=== PATIENT | male | born 2000 | race Hispanic/Latino ===

== ENCOUNTER 2025-06-22 06:02 | Emergency (ER) | payer OTHER ==
[~2025-06-22] VITALS: Ht 188 cm; Wt 81.6 kg
--- NOTE | 2025-06-22 06:07 | NUR ---
REPORT TO RAMILA BURT
[2025-06-22 06:22] LABS: IMMATURE GRANULOCYTE ABSOLUTE 0.03 K/uL (0-1); NUCLEATED RED BLOOD CELLS 0.0 % (0.0-0.19); PLATELET COUNT (AUTO) 325 K/uL (130-400); RED BLOOD CELL COUNT(AUTO) 5.83 MIL/uL (4.50-6.20); RED CELL DISTRIBUTION WIDTH 12.8 % (11.0-15.5); WHITE BLOOD COUNT (AUTO) 10.4 K/uL (4.8-10.8)
[2025-06-22 06:36] LABS: ASPARTATE AMINOTRANSFERASE 20.0 U/L (10-37); CREATININE 1.1 mg/dL (0.5-1.3); GLOMERULAR FILTR. RATE CALC 95.0 mL/min (>90); GLUCOSE,RANDOM 97.0 mg/dL (70-105); SODIUM SERUM 134.0 mmol/L (136-145); TOTAL PROTEIN, SERUM 8.7 g/dL (6.0-8.3); UREA NITROGEN, BLOOD 24.0 mg/dL (7-18)
--- NOTE | 2025-06-22 07:11 | ERN ---
ED Note History of Present Illness Stated Complaint: DIARRHEA Chief Complaint: Diarrhea Time Seen by MD: 06:35 Dictation: This is a 24-year-old male who presented to the emergency room with complaints of diarrhea for 24 hours. He denied any fever chills or rigors. No other family members are sick. Temperature 97.9 pulse 91 respirations 16 blood pressure 134/72 with a pulse oximetry of 97% on room air Allergies: Coded Allergies: No Known Allergies (Unverified Allergy, Unknown, 06/22/25) Past Medical History Past Medical History: No Pertinent History Surgical History: None Family History: Negative RN Note Reviewed/Agreed w/PFSH: Yes Review of System Dictation Constitutional: Negative for fever,chills, and weight loss Eyes: Negative for injury, pain,redness, and discharge ENT: Negative for injury,pain or swelling Cardiovascular: Negative for chest pain, palpitations, and edema Respiratory: Negative for shortness of breath, cough, and wheezing, Abdomen/GI: Negative for abdominal pain, nausea, vomiting,, and constipation positive for diarrhea Back: Negative for injury and pain : Negative for injury, bleeding and discharge MS/Extremity: Negative for injury and deformity Skin: Negative for rash, and discoloration Neuro: Negative for headache, weakness, numbness, tingling, and seizure Psych: Negative for suicide ideation, homicidal ideation, and hallucinations Initial Vital Sign VS Vital Signs Date Time Temp Pulse Resp B/P (MAP) Pulse Ox O2 Delivery O2 Flow Rate FiO2 06/22/25 06:03 97.9 91 16 134/72 97 Room Air Physical Exam Dictation General: awake, alert, NAD Head/Face: Normocephalic, atraumatic Eyes: PERRL, EOMI, vision at baseline ENT: oral cavity clear, TMs clear, no signs of infection Neck: Trachea midline, supple, no nuchal rigidity Cardiovascular: RRR, normal S1/S2, No MRGs, no JVD Respiratory: CTAB, no respiratory distress, No rales or wheezes Abdomen: Soft, non-tender, non-distended, normal bowel sounds, no guarding or rebound. Skin: Warm, dry, normal turgor, no rash MS/Extremity: Pulses equal, no cyanosis, neurovascular intact, FROM Neuro: COAx4, GCS 15, strength 5/5, CN 2-12 intact, normal cerebellar exam, normal gait, Psych: Normal behavior, mood, and affect normal Extremities-trace edema without any palpable cords, Homans sign is negative Results (Laboratory/Radiology) Laboratory/Radiology Laboratory Tests Test 06/22/25 06:16 White Blood Count 10.4 K/uL (4.8-10.8) Red Blood Count 5.83 MIL/uL (4.50-6.20) Hemoglobin 17.4 g/dL (14.0-18.0) Hematocrit 50.3 % (42-54) Mean Corpuscular Volume 86.3 fL (79-99) Mean Corpuscular Hemoglobin 29.8 pg (27.0-33.0) Mean Corpuscular Hemoglobin Concent 34.6 g/dL (32.0-36.0) Red Cell Distribution Width 12.8 % (11.0-15.5) Platelet Count 325 K/uL (130-400) Mean Platelet Volume 9.7 fL (7.5-10.5) Immature Granulocyte % (Auto) 0.3 % (0-1) Neutrophils (%) (Auto) 60.1 % (40.0-77.0) Lymphocytes (%) (Auto) 29.4 % (21.0-51.0) Monocytes (%) (Auto) 7.6 % (3.0-13.0) Eosinophils (%) (Auto) 2.2 % (0.0-8.0) Basophils (%) (Auto) 0.4 % (0.0-5.0) Neutrophils # (Auto) 6.2 K/uL (1.8-7.7) Lymphocytes # (Auto) 3.1 K/uL (1.0-4.8) Monocytes # (Auto) 0.8 K/uL (0.1-1.0) Eosinophils # (Auto) 0.23 K/uL (0.00-0.70) Basophils # (Auto) 0.04 K/uL (0.00-0.20) Absolute Immature Granulocyte (auto 0.03 K/uL (0-1) Nucleated Red Blood Cells 0.0 % (0.0-0.19) Sodium Level 134 mmol/L (136-145) L Potassium Level 3.8 mmol/L (3.5-5.1) Chloride Level 101 mmol/L (101-111) Carbon Dioxide Level 22 mmol/L (21-32) Blood Urea Nitrogen 24 mg/dL (7-18) H Creatinine 1.1 mg/dL (0.5-1.3) Glomerular Filtration Rate Calc 95 mL/min (>90) Random Glucose 97 mg/dL (70-105) Total Calcium 8.8 mg/dL (8.5-10.1) Total Bilirubin 0.9 mg/dL (0.2-1.0) Aspartate Amino Transf (AST/SGOT) 20 U/L (10-37) Alanine Aminotransferase (ALT/SGPT) 39 U/L (12-78) Alkaline Phosphatase 113 U/L (50-136) Total Protein 8.7 g/dL (6.0-8.3) H Albumin 4.6 g/dL (3.5-5.0) Labs Reviewed?: Yes ED Course ED Course Orders Procedure Category Date Status Time Cbc With Differential LAB 06/22/25 Complete 06:07 Comprehensive LAB 06/22/25 Complete Metabolic Panel 06:07 Lactated Ringers PHA 06/22/25 Logged 1000ml (Lactated 07:30 Loperamide Hcl 2 Mg PHA 06/22/25 Verified Cap (Imodium) 07:30 Current Medications Medications (Trade) Dose Ordered Sig/Jeimy Route PRN Reason Start Time Stop Time Status Last Admin Dose Admin Lactated Ringer's 1,000 ml @ 125 mls/hr ONCE ONCE IV 06/22/25 07:30 06/22/25 15:29 UNV Vital Signs Date Time Temp Pulse Resp B/P (MAP) Pulse Ox O2 Delivery O2 Flow Rate FiO2 06/22/25 06:03 97.9 91 16 134/72 97 Room Air We will perform diagnostic labs, and administer medications according to the patient's complaint. Once the results are available, will review and personally interpreted the labs to rule out any acute life-threatening emergency the trach require immediate intervention and treatment. I will then re-evaluate the patient after treatment and diagnostic exams have return to determine whether the patient requires any further testing, can safely be discharged home or need further admission to hospital for additional treatment and evaluation. Medical Decision Making MDM Differential diagnosis: Food poisoning, viral gastroenteritis, lactose intolerance, inflammatory bowel disease, irritable bowel syndrome This is a 24-year-old male who presented to the emergency room with complaints of diarrhea for 24 hours. He denied any fever chills or rigors. No other family members are sick. Temperature 97.9 pulse 91 respirations 16 blood pressure 134/72 with a pulse oximetry of 97% on room air Labs reviewed CBC is with a normal limits BNP 7 shows a sodium of 134 BUN and creatinine of 24 and 1.1 Trial of gentle fluids and symptomatic management. Rationale: Tests considered and ordered secondary to shared decision making include: Labs Previous outside records reviewed: Old ER visits. Risk of complication and/or morbidity or mortality of patient management: None Medications-Per medication reconciliation Need for hospitalization: Patient does not meet criteria for hospitalization. Need for emergency major/minor surgery: No There are no social concerns with this patient. Prescription drug management Prescriptions will include symptomatic care Patient's prior external medical records from other ER visits were reviewed by me as indicated. Prior testing and results from previous visits were reviewed. Prior tests were taken into account with medical decision making and resource utilization, independent historian/historians were used to obtain complete medical history. I independently interpreted the test that were performed, results were reviewed by me and considered findings on radiology if ordered. Medical management and examination interpretation discussions were had by me with other qualified healthcare professionals as indicated for the patient's care. Problem List Problem List: (1) Diarrhea (2) Dehydration DX & DISP Disposition: Discharge Departure Impression: Primary Impression: Diarrhea Additional Impression: Dehydration Condition: Stable Additional Instructions: Patient and the caregiver have been informed of all the diagnostic tests and the imaging conducted during the today's visit to the emergency room and has verbalized understanding of the results I have personally reviewed and interpreted all diagnostic exams performed here in the ER today as well as the vital signs documented by the nursing staff. The patient is now being discharged to home and should follow up with the primary care physician or the specialist as directed by the ER staff. Referrals: AMINA BUSTAMANTE (PCP) BRIGITTE MCCLAIN MD Jun 22, 2025 07:11
[2025-06-22] MEDS: LACTATED RINGERS 1000ML 1,000 ML IV ONE (07:32)
[2025-06-22] MEDS: LOPERAMIDE HCL 2 MG CAP PO ONE (07:32)
[2025-06-22 08:50] VITALS: BP 105/67; PULSE 67; RESP 16; TEMP 97.2; O2SAT 97
--- NOTE | 2025-06-22 08:55 | NUR ---
PT RECEIVED HIS DISCHARGE DOCUMENTS. INFORMATION GIVE REGARDING REHYDRATION AND BLAND DIET. HE VERBALIZED UNDERSTANDING.AMBULATED TO DISCHARGE WITH A STEADY GAIT.
== END 2025-06-22 09:00 | disposition home or self-care (01) ==
LOC: EDH 06:02
DX: R19.7 Diarrhea, unspecified (principal); E86.0 Dehydration
CPT/HCPCS: 99283; 96360; 80053; 85025; 36415; J7120